=== PATIENT | male | born 1965 | race Caucasian/White ===

== ENCOUNTER → 2019-12-14 12:16 | Outpatient (CLI) | payer BC, SELFPAY ==
--- NOTE | ~2019-12-14 | MR_ITS ---
EXAMINATION: MR knee LT wo con DATE: 12/14/2019 13:22 INDICATION: Acute onset left knee pain TECHNIQUE: Magnetic resonance imaging (MRI) of the left knee was performed without intravenous contra st. Sequences included coronal PD-weighted FSE, coronal PD-weighted FS FSE, sagittal T2-weighted FSE , sagittal PD-weighted FS FSE and axial PD weighted fat saturated FSE. COMPARISON: None. FINDINGS: Medial compartment: Medial meniscus is normal. Small region of partial-thickness chondral fissuring along the lateral homer e of the anterior weightbearing medial femoral condyle. Lateral compartment: Lateral meniscus is normal. Articular cartilage is normal. Patellofemoral compartment: Partial-thickness cartilage loss and deep fissuring with mild underlying subarticular edema at the pa tellar apical ridge and lateral facet and to a lesser degree the medial patellar facet. Additional de ep chondral fissuring with subtle cortical irregularity and subarticular edema along the caudal half of the medial trochlea. Ligaments and tendons: The posterior cruciate ligament is normal. The anterior cruciate ligament demonstrates a normal angle relative to Blumenstaat's line. It appears mildly thickened with increased intrasubstance signal stephanie rounding intact appearing linear ligament fibers with a celery stalk appearance consistent with muc oid degeneration. Small intrasubstance ganglion cysts are seen along the proximal aspect of the liga ment. The medial collateral ligament and fibular collateral ligament complex are normal. The extensor mechanism is normal. The visualized medial and lateral hamstring tendons as well as the iliotibial b and are normal. Fluid: Physiologic amount of fluid in the joint space. No loose osteochondral bodies identified. There is co ncentric region of edema extending along the lateral side of the periphery of the semimembranosus mus byron belly. There is no intramuscular edema differential would include either epimysial edema related to low-grade muscle strain or extravasation of fluid from a ruptured Olguin's cyst. Osseous/other: Aside from the small regions of subarticular edema there is normal marrow signal. No fracture or path ologic marrow replacing process. Feathery edema along the popliteus muscle consistent with low-grade strain. IMPRESSION: 1. 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 2. Mucoid degeneration of the anterior cruciate ligament without discrete tear. 3. Low-grade strain of the popliteus muscle. 4. Edema tracking along the periphery of the lateral side of the gastrocnemius muscle which could be related to additional low-grade strain or extravasation of fluid from a ruptured Olguin's cyst. Reviewed, dictated and finalized at location B. IMPRESSION: 1. Mild patellofemoral osteoarthritis with high-grade chondromalacia and minima l osteoarthritis in the medial compartment with small region of moderate grade chondral malacia along the anterior weightbearing medial femoral condyle. 2. Mucoid degeneration of the anterior cruciate ligament without discrete tear. 3. Low-grade strain of the popliteus muscle. 4. Edema tracking along the periphery of the lateral side of the gastrocnemius muscle which could be related to additional low-grade strain or extravasation o f fluid from a ruptured Olguin's cyst.
== END ==
PROVIDERS: PCP Student in an Organized Health Care Education/Training Program; Visit Provider Student in an Organized Health Care Education/Training Program
DX: M17.12 Unilateral primary osteoarthritis, left knee (principal)
CPT/HCPCS: 73721

== ENCOUNTER 2022-07-06 14:20 | Outpatient (CLI) | payer BC, SELFPAY ==
--- NOTE | ~2022-07-06 | XR_ITS ---
EXAMINATION: XR shoulder RT min 2V DATE: 07/06/2022 15:00 INDICATION: Acute right shoulder pain. TECHNIQUE: 4 views of right shoulder were obtained. COMPARISON: None. FINDINGS: Bone alignment is normal. No fracture. Joint spaces are normal. IMPRESSION: 1. Normal right shoulder. Reviewed, dictated and finalized at location A. IMPRESSION: 1. Normal right shoulder.
== END 2022-07-06 14:21 ==
PROVIDERS: PCP Student in an Organized Health Care Education/Training Program; Visit Provider Nurse Practitioner
DX: M25.511 Pain in right shoulder (principal)
CPT/HCPCS: 73030

== ENCOUNTER 2023-08-02 13:44 | Outpatient (CLI) | payer BC, SELFPAY ==
--- NOTE | ~2023-08-02 | US_ITS ---
EXAMINATION: US soft tissue lower back DATE: 08/02/2023 14:03 INDICATION: Localized swelling, mass and lump, left flank. TECHNIQUE: Multiple grayscale and Doppler ultrasound images of the lower back were obtained. COMPARISON: None FINDINGS: In the left flank, there is a 4.7 x 1.2 x 1.8 cm subcutaneous mass that is slightly hyperec hoic to subcutaneous fat with similar echotexture. IMPRESSION: 1. 4.7 cm subcutaneous mass in left flank, most likely a lipoma. Reviewed, dictated and finalized at location E.
== END 2023-08-02 13:45 ==
LOC: MICIMG 13:46
PROVIDERS: PCP Student in an Organized Health Care Education/Training Program; Visit Provider Student in an Organized Health Care Education/Training Program
DX: R22.2 Localized swelling, mass and lump, trunk (principal)
CPT/HCPCS: 76705

== ENCOUNTER 2023-09-01 13:48 | Outpatient (CLI) | payer BC, SELFPAY ==
[2023-09-01 14:08] LABS: Basophils Absolute Auto 0.1 K/mm3 (0.0-0.1); Basophils Percent Auto 0.4 % (0.2-1.2); Eosinophils Absolute Auto 0.1 K/mm3 (0-0.3); Eosinophils Percent Auto 0.5 % (0-4.4); Hematocrit 44.6 % (42.0-52.0); Hemoglobin 14.8 g/dL (14.0-18.0); Immature Granulocyte Absolute 0.04 K/mm3 (0.00-0.031); Immature Granulocyte Percent A 0.3 % (0-0.5); Lymphocytes Absolute Auto 2.13 K/mm3 (0.9-3.2); Lymphocytes Percent Auto 18.2 % (18.3-44.2); Mean Corpuscular HGB Conc 33.2 g/dl (32-36); Mean Corpuscular Hemoglobin 29.7 pg (26-34); Mean Corpuscular Volume 89.4 fl (80-100); Mean Platelet Volume 9.8 fl (7.4-10.4); Monocytes Absolute Auto 0.8 K/mm3 (0.1-0.6); Monocytes Percent Auto 6.5 % (2.6-8.5); Neutrophils Absolute Auto 8.6 K/mm3 (1.3-6.7); Neutrophils Percent Auto 74.1 % (45.5-73.1); Platelet Count Result 293 k/mm3 (150-375); Red Blood Count 4.99 M/mm3 (4.6-6.20); Red Cell Distribution Width 12.2 % (11.5-14.5); White Blood Count 11.7 K/mm3 (4.5-10.0)
[2023-09-01 14:24] LABS: D Dimer 0.49 ug/mL (<0.48)
[2023-09-01 14:32] LABS: Uric Acid 5.9 mg/dL (3.5-8.5)
== END 2023-09-01 13:49 | disposition home or self-care (01) ==
LOC: ANHLAB 13:49
PROVIDERS: PCP Student in an Organized Health Care Education/Training Program; Visit Provider Nurse Practitioner
DX: M25.471 Effusion, right ankle (principal)
CPT/HCPCS: 36415; 84550; 85025; 85380